=== PATIENT | female | born 1990 | race Caucasian/White ===

== ENCOUNTER 2022-07-17 00:17 | Emergency (ER) | payer MEDICAID ==
[~2022-07-17] VITALS: Ht 162.6 cm; Wt 70.0 kg
[2022-07-17] MEDS ORDERED: GABAPENTIN 300MG CAPSULE PO STA (00:47)
[2022-07-17] MEDS ORDERED: KETOROLAC 60MG/2ML VIAL IM ONE (01:00)
[2022-07-17 01:03] VITALS: BP 136/76
[2022-07-17] MEDS ORDERED: GABA-532 MT (04:31)
== END 2022-07-17 04:59 | disposition home or self-care (01) ==
LOC: ER 00:17
DX: M79.605 Pain in left leg (principal); M79.604 Pain in right leg
CPT/HCPCS: 93970; 96372; 99284; J1885